=== PATIENT | male | born 2005 | race Caucasian/White ===

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

== ENCOUNTER 2024-10-15 15:17 | Outpatient (REF) | payer OTHER, SELFPAY ==
[2024-10-15 15:43] LABS: MANUAL DIFF FLAG NO
[2024-10-15 15:54] LABS: Basophils Percent Auto 0.5 % (0-2); Eosinophils Absolute Auto 0.2 X10*3/uL (0.0-0.4); Eosinophils Percent Auto 2.7 % (0-4); Hematocrit 48.1 % (42.0-52.0); Hemoglobin 16.8 g/dl (14.0-18.0); Imm Gran Abs Auto 0.03 X10*3/uL (0.00-0.03); Imm Gran Pct Auto 0.4 % (0.0-0.4); Lymphocytes Absolute Auto 1.3 X10*3/uL (1.2-4.9); Mean Corpuscular HGB Conc 34.9 g/dl (31.0-36.0); Mean Corpuscular Hemoglobin 30.4 pg (27.0-33.0); Mean Platelet Volume 9.6 fL (9.4-12.4); Monocytes Absolute Auto 0.5 X10*3/uL (0.1-1.2); Monocytes Percent Auto 6.4 % (2-11); Neutrophils Absolute Auto 5.8 x10*3/uL (2.0-8.3); Platelet Count 248 X10*3/uL (160-400); Red Blood Count 5.53 X10*6/uL (4.60-5.80); Red Cell Distribution Width 11.9 % (11.0-16.0); White Blood Count 7.9 X10*3/uL (4.8-10.8)
[2024-10-15 16:26] LABS: Alanine Aminotransferase 27 U/L (0-40); Albumin Level 4.7 g/dL (3.5-5.0); Alkaline Phosphatase 72 U/L (39-117); Anion Gap 12 (12-20); Aspartate Amino Transferase 25 U/L (5-37); Bilirubin Direct 0.2 mg/dL (0.0-0.5); Bilirubin Total 0.7 mg/dL (0.0-1.0); Blood Urea Nitrogen 17 mg/dL (9-16); Calcium 10.3 mg/dL (8.4-10.2); Carbon Dioxide 28 mmol/L (22-29); Chloride 106 mmol/L (96-108); Cholesterol 135 mg/dL (<200); Estimated Glomerular Filt Rate > 60; Glucose Random 112 mg/dL (60-115); HDL Cholesterol 55 mg/dL (>40); LDL Cholesterol Calculated 72 mg/dL (<100); Potassium 4.9 mmol/L (3.3-5.1); Sodium 141 mmol/L (135-145); Total Protein 7.5 g/dL (6.5-8.0); Triglycerides 41 mg/dL (<150)
--- OUTSIDE RECORDS SUMMARY | 2024-10-15 19:21 | XMS_ITS | Encounter Summary ---
Author Organization [facility] Address [address] [place] [id number] Phone Care Team Providers Care Thermal Surfacing Machine Operator Name Role Phone Chapito Lyle MD Primary Care Provider [phone] Encounter Details Date Type Department Care Team (Late st Contact Info) Description 12/31/2017 [facility]version [facility]counter [facility] [address] [address] Hoang Montenegro MD Social History Tobacco Use Types Packs/Day Years Used Date Smoking Tobacco: Never Assessed Sex and Gender Information Value Date Recorded Sex Assigned at Male 08/22/2023 2:32 PM EST Legal Sex Male 6:24 PM EDT Gender Identity Male 08/22/2023 2:32 PM EST Sexual Orientation Not on file documented as of this encounter Plan of Treatment Not on file documented as of this encounter Visit Diagnoses Not on filedocumented in this encounter Care Teams Thermal Surfacing Machine Operator Relationship Specialty Start Date End Date Chapito Lyle MD [address] [place] [id number] PCP - General Pediatrics 05/06/19 documented as of this encounter
--- OUTSIDE RECORDS SUMMARY | 2024-10-15 19:21 | XMS_ITS | Encounter Summary ---
Author Organization [facility] Address [address] [place] [address] Phone Care Team Providers Care Finishing Room Supervisor Name Role Phone Chapito Lyle MD Primary Care Provider [phone] Encounter Details Date Type Department Care Team (Late st Contact Info) Description 09/09/2009 Documentation [facility] [place] Family Medicine [address] [place] [address] Family Medicine, Physician [address] [place] [address] Social History Tobacco Use Types Packs/Day Years [...] on filedocumented in this encounter Care Teams Finishing Room Supervisor Relationship Specialty Start Date End Date Chapito Lyle MD [address] [place] [address] PCP - General Pediatrics 05/06/19 documented as of this encounter
--- OUTSIDE RECORDS SUMMARY | 2024-10-15 19:21 | XMS_ITS | Clinical Summary ---
Author Organization [facility] Address [address] [place] [address] Phone Care Team Providers Care Maintenance Specialist Name Role Phone Chapito Lyle MD Primary Care Provider Allergies Active Allergy Reactions Criticality Noted Date Comments Penicillin G Rash Low Penicillin V Rash Low 05/03/2018 Medications triamcinolone 0.1 % creamIndications :Eczema, unspecified type Apply topically 2 (two) times a day as needed for rash. 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 Eczema 05/03/2018 Assessment & Plan (08/22/2023 2:28 PM EST): 08/05: sees derm and is on dupixent. Assessment & Plan (06/13/2023 10:58 AM EDT): Has improved; will continue topical treatment and refer to derm. Will do some screening labs for immuno deficiency. Assessment & Plan (11/29/2022 10:32 AM EDT): Much improved. Complete PO steroid taper. Lots of moisturizing with Aquaphor or Eucerin, topical steroid as needed. Genoveva declines a derm referral at this time as his flares have been infrequent. Call if symptoms worsen when he finishes the steroid taper. Overdue for physical which I asked him to schedule on the way out. Assessment & Plan (11/23/2022 7:45 PM EDT): Also examined by Dr. Lyle. 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 Will treat with PO antibiotics and steroids given how diffuse rash is at this point. Use of moisturizers, and recommended starting topical steroid after 3 days on oral meds. Will recheck in 1 week. Can consider derm referral if needed. Call sooner if worsening, or with other concerns. Resolved Problems Problem Noted Date Diagnosed Date Resolved Date Influenza vaccine refused 05/07/2019 Assessment & Plan (05/07/2019 3:02 PM EDT): Discussed reasons for influenza vaccination to include prevention of this potential serious infection. Dental caries 05/03/2018 12/02/2020 Encounters Date Type Department Care Team Description 08/12/2024 [facility]phone [facility] [address] [address] Chapito Lyle MD Aging out of Practice from Last 3 Months Immunizations Immunization Administration Dates Next Due DTaP 04/28/2009,05/25/2005 DTaP / Hep B / IPV 2004,2004, 004 HPV Vaccine 9 Valent 08/22/2023 Hep A, ped/adol 05/07/2019,05/04/2018 Hep B, ped/adol 2004 Hib (PRP-T) 05/25/2005 IPV 06/04/2009,05/25/2005 Influenza, injectable, quadr ivalent, preservative free 08/22/2023 Influenza, injectable, triva lent, preservative free 05/25/2005,2004 MMR 05/02/2008,02/25/2005 Meningococcal B Bexsero 08/22/2023 Meningococcal Conj (Menactra) MCV4P 12/02/2020,0 10/09/2015 Pneumococcal Conjugate 05/25/2005,2004,2004,04/29 Tdap 10/09/2015 Varicella 05/02/2008,02/25/2005 Family History Medical History Relation Name Comments No Known Problems Brother Hyperlipidemia Father No Known Problems Maternal Grandfather Hyperlipidemia Maternal Grandmother Hypertension Maternal Grandmother Hypertension Paternal Grandmother No Known Problems Sister Relation Name Status Comments Brother Alive Father Alive hyperlipidemia age: 51 Maternal Grandfather Alive healthy age: 72 Maternal Grandmother Alive hyperte nsion, hyperlipidemia age: 70 Mother Alive kidney infectio ns age: 48 Other Alive Siblings: healt hy brother 1988, sister 2000 Paternal Grandfather CVA age : 67 Paternal Grandmother Alive hyperte nsion age: 75 Sister Alive Social History Tobacco Use Types Packs/Day Years Used Date Smoking Tobacco: Never Smokeless Tobacco: Never Alcohol Use Standard Drinks/Week Comments No 0 (1 standard drink = 0.6 oz pur e alcohol) Hunger/Food Answer Date Recorded In the last 12 months, did y ou or your family ever eat less than you felt you should because there wasn't enough money for food? No 05/07/2019 Stable Housing Answer Date Recorded Are you worried that in the next 2 months you may not have stable housing? No 05/07/2019 Transportation Concerns Answer Date Rec orded In the last 12 months, have you or your family ever had to go without healthcare because you didn't have a way to get there? No 05/07/2019 Hazards in Home Answer Date Recorded Think about the place you li ve. Do you have problems with any of the following? Pests (mice or roaches), mold, no/not working smoke detectors, water leaks, no window guards. No 2018 Financing Utilities Answer Date Recorde d In the last 12 months, has t he electric, gas, oil, or water company threatened to shut off your services in your home? No 05/07/2019 Safety at Home Answer Date Recorded Are you or your family worried about feeling saf e in your home? No 05/07/2019 Outside Support Answer Date Recorded Do you feel that you need mo re support from other people or programs to help you care for yourself or your family? No 05/07/2019 Understanding Health Concerns Answer Da te Recorded Do you need help understandi ng your or your child's healthcare needs (diagnosis, medications, plan, etc.)? No 05/07/2019 Financing Health Concerns Answer Date R ecorded In the last 12 months, was t here a time when your child needed to see a doctor or get medications or supplies but could not because of cost? No 05/07/2019 Missing School or Work Answer Date Teo rded Did you or your child miss s chool or work because of a health problem that could have been avoided? No 05/07/2019 Sex and Gender Information Value Date Recorded Sex Assigned at Male 08/22/2023 2:32 PM EST Legal Sex Male 6:24 PM EDT Gender Identity Male 08/22/2023 2:32 PM EST Sexual Orientation Not on file Last Filed Vital Signs Vital Sign Reading Time Taken Comments Blood Pressure 116/78 08/22/2023 2:11 PM EST Pulse 113 05/17/2011 12:00 AM EDT Temperature 37.2 ??C (99 ??F) 11/23/2022 5:35 PM EDT Respiratory Rate - - Oxygen Saturation 99% 05/17/2011 12:00 AM EDT Inhaled Oxygen Concentration - - Weight 60.1 kg (132 lb 9.6 oz) 08/22/2023 2:11 P M EST Height 171.5 cm (5' 7.5 ) 08/22/2023 2:11 PM EST Body Mass Index 20.46 08/22/2023 2:11 PM EST Plan of Treatment Health Maintenance Due Date Last Done Comments HPV Vaccines (2 - Male 3-dos e series) 09/19/2023 08/22/2023 Men B Vaccine (2 of 2 - Bexs ero SCDM 2-dose series) 02/20/2024 08/22/2023 Influenza Vaccines (#1) 2024 08/22/19 24, 07/28/2020, 05/25/2005, Additional history exists COVID-19 Vaccine (4 - 2023-2 5 season) 2024 02/24/2022, 04/02/2021, 03/11/2021 DTaP,Tdap,and Td Vaccines (7 - Td or Tdap) 10/09/2025 10/09/2015, 04/28/2009, 05/25/2005, Additional history exists Hepatitis B Vaccines Completed 2004, 2004, 2004, Additional history exists HIB Vaccines Completed 05/25/2005 Pneumococcal Vaccine Completed 05/25/2005, 2004, 2004, Additional history exists MMR Vaccines Completed 05/02/2008, 02/25/2005 Varicella Vaccines Completed 05/02/2008, 02/25/2005 IPV Vaccines Completed 06/04/2009, 05/14, 2004, Additional history exists Hepatitis A Vaccines Completed 05/07/2019, 05/04/20 18 Meningococcal Vaccine Completed 12/02/2020, 016 Insurance [employer] [facility] Care Teams Maintenance Specialist Relationship Specialty Start Date End Date Chapito Lyle MD [address] [place] [address] [place] [address] PCP - General Pediatrics 05/06/19
--- OUTSIDE RECORDS SUMMARY | 2024-10-15 19:21 | XMS_ITS | Encounter Summary ---
Author Organization [facility] Address [address] [place] [address] Phone Care Team Providers Care Rollway Man Name Role Phone Chapito Lyle MD Primary Care Provider [phone] Encounter Details Date Type Department Care Team (Late st Contact Info) Description 09/14/2009 Documentation [facility] [place] Family Medicine [address] [place] [address] Family Medicine, Physician [address] [place] [address] Social History Tobacco Use Types Packs/Day Years [...] on filedocumented in this encounter Care Teams Rollway Man Relationship Specialty Start Date End Date Chapito Lyle MD [address] [place] [address] PCP - General Pediatrics 05/06/19 documented as of this encounter
[2024-10-16 08:12] LABS: HBc Num1 0.05 S/CO (0.00-0.79); HBsAGNum1 0.39 S/CO (0.00-0.99); Hepatitis B Core Antibody Nonreactive (Nonreactive); Hepatitis B Surface Antigen Negative (Negative); ~HepC Num1 0.17 S/CO (0.00-0.79); ~Hepatitis B Surface Antibody NONREACTIVE (Nonreactive); ~Hepatitis C Antibody Nonreactive (Nonreactive)
[2024-10-16 11:48] LABS: LDL Cholesterol Direct 71 mg/dL (<100)
[2024-10-18 11:49] LABS: TS Negative Control Passed; TS Panel A 0; TS Panel B 0; TS Positive Control Passed; TSpotTB Negative (Negative)
== END 2024-10-15 15:18 | disposition home or self-care (01) ==
LOC: HO.LAB 15:17
PROVIDERS: PCP Pediatrics; Visit Provider Physician Assistant
DX: L20.89 Other atopic dermatitis (principal); Z79.899 Other long term (current) drug therapy
CPT/HCPCS: 36415; 80048; 80061; 80076; 83721; 85025; 86481; 86704; 86706; 86803; 87340